=== PATIENT | female | born 1955 | race Caucasian/White ===

== ENCOUNTER 2018-07-04 21:58 | Observation (INO) | payer MEDICARE ==
[2018-07-05] MEDS ORDERED: Acetaminophen 325 MG TAB PO PRN (00:48)
[2018-07-05] MEDS ORDERED: HYDROcodone/Acetaminophen 5/325 mg Tablet PO PRN (00:48)
[2018-07-05] MEDS ORDERED: Senokot S 8.6-50 MG TAB PO PRN (00:48)
[2018-07-05] MEDS ORDERED: Dextrose 50% Abboject 50 ML SYRINGE SLOW IVP PRN (00:55)
[2018-07-05] MEDS ORDERED: HumaLOG 300 UNITS/3 ML VIAL SC PRN (00:55)
[2018-07-05] MEDS ORDERED: Dextrose 5% in Water 1,000 ML IV PRN (00:55)
[2018-07-05 02:28] VITALS: BMI 27.3
--- NOTE | 2018-07-05 04:11 | HP ---
PRIMARY CARE PHYSICIAN: Dr. Santos. CHIEF COMPLAINT: Syncope. HISTORY OF PRESENT ILLNESS: Ms. Liz is a 62-year-old female who was initially taken and evaluated at [facility] after she had an unwitnessed fall backwards. reports that they came home, she got out of the truck. He was ahead of her, went into the house, turned around and realized she was not there, so he went back out and found her on the ground on her back. He carried her into the house and put her to bed. She does report vomiting, felt better. She has no memory of the fall. Does not remember if she lost her footing, had a mechanical fall or had a syncopal episode, does not remember. When she woke up this morning, she was still quite dizzy. was worried that she had a stroke a year and half ago that she had an another one and brought her to the emergency room for further evaluation. The patient had a CT of the brain, neck, and chest with no signs of acute abnormality. EKG in the emergency room showed beats per minute 70 with no ectopics, conduction incomplete, right bundle branch block, T-waves inverted in leads III, left atrial enlargement, nonspecific T-wave changes. The patient was initially going to be transferred to [facility] where her in store marketing representative is, but they were unable to get a bed for her in 10 hours, so decision was decided to send her to [facility] for admission. The patient does have a past medical history pertinent for CVA 18 months ago, hyperlipidemia, hypertension, CAD, had a five-vessel CABG, diabetes. PAST SURGICAL HISTORY: Cervical spine, carpal tunnel bilaterally, five-vessel CABG, hysterectomy, mastectomy. SOCIAL HISTORY: Denies alcohol or drug use. No smoking history. ALLERGIES: NONE. CURRENT MEDICATIONS: Per ER systems, would need to be verified and reconciled, 1. Coreg 12.5 mg p.o. two times a day. 2. Lisinopril 10 mg p.o. b.i.d. 3. Metformin 1000 mg p.o. b.i.d. 4. Aspirin 81 mg in the morning. REVIEW OF SYSTEMS: The patient reports syncope. Denies chest pain or palpitations. Denies any shortness of breath. Does reports some nausea and vomiting earlier, resolved. She does report headache which has improved. All other systems reviewed and are negative unless mentioned in the HPI. PHYSICAL EXAMINATION: VITAL SIGNS: Temperature is 98, pulse is 95, respirations 20, pO2 sats are 97% on room air, blood pressure is CONSTITUTIONAL: The patient is alert and oriented to person, place, and time. She is in no acute distress. HEENT: Head has a 1 cm left posteroparietal scalp hematoma. No depression. Negative Schofield sign. Eyes, pupils are equal, round, and reactive to light. Extraocular muscles are intact. ENT, mouth exam is normal. Mucous membranes are moist. NECK: No tenderness. Normal range of motion. RESPIRATORY: Breath sounds are clear. Mild tenderness to the left posterior chest. CARDIOVASCULAR: Regular heart rate and rhythm. Heart sounds are normal. ABDOMEN: Nontender. Bowel sounds are heard. BACK: Normal range of motion. No tenderness. EXTREMITIES: Upper extremities; normal inspection. Normal range of motion. Sensation is intact. Radial pulses are normal. Lower extremities; normal inspection. Normal range of motion. Motor strength is normal. Sensation is intact. Pedal pulses are normal. NEUROLOGIC: The patient is oriented to person, place, and time. There are no focal motor or sensory deficits. SKIN: Warm, dry, normal in color. PERTINENT LABORATORY DATA: Sodium 138, potassium is 4.0, chloride is 105, carbon dioxide is 24, gap is 13, BUN is 13, estimated GFR is 42, creatinine is 1.29, glucose 238. Liver enzymes are unremarkable. ASSESSMENT AND PLAN: 1. Syncope. We will place on heart monitor. The patient has a history of cerebrovascular accident. We will obtain a brain MRI without contrast, carotid Dopplers, and echocardiogram. 2. Dizziness, may be related #1. The patient did have unwitnessed fall with head injury, might be concussive. We will keep a close eye. We will ask stroke team to evaluate. Aspirin 325 mg. 3. Hypertension. We will continue home medications. We will trend. 4. Diabetes. We are going to hold metformin for now. Add a.c. and at bedtime Accu-Cheks, mild sliding scale. 5. Dyslipidemia. We will check lipids. However, the patient states that she had severe adverse reactions to statins and she refuses to be restarted. She does take fish oil. 6. We have asked for records from [facility]. The patient follows Dr. Ramachandran over there for any cardiac related CVA or anything that could help us with past medical history would be helpful. 7. Gastrointestinal and deep venous thrombosis prophylaxis will be started. 8. Hospital course will be dependent on clinical findings. Job ID: [id number]
[2018-07-05 05:57] LABS: PTT 31.8 SEC (22.9-36.1); Prothrombin Time 13.2 SEC (12.0-14.7)
[2018-07-05 05:58] LABS: #Basophils 0.1 thou/uL (0.0-0.2); #Eosinphils 0.2 thou/uL (0.0-0.7); #Lymphocytes 2.5 thou/uL (1.20-3.40); #Monocytes 0.5 thou/uL (0.11-0.59); #Neutrophils 3.4 thou/uL (1.40-6.50); %Basophils 0.8 % (0.0-1.0); %Eosinophils 2.5 % (0.0-10.0); %Lymphocytes 37.4 % (21.0-51.0); %Monocytes 7.6 % (0.0-10.0); %Neutrophils 51.7 % (42.0-75.0); Hemoglobin 13.1 g/dL (12.0-16.0); Mean Corpuscular HGB CONC 33.6 g/dL (32.0-36.0); Mean Corpuscular Hemoglobin 29.6 pg (27.0-31.0); Mean Corpuscular Volume 87.8 fL (78.0-98.0); Mean Platelet Volume 9.4 fL (7.4-10.4); Platelet Count 160 thou/uL (130-400); RBC Distribution Width 12.5 % (11.5-14.5); Red Blood Cell (RBC) Count 4.43 mill/uL (4.20-5.40); White Blood Cell (WBC) Count 6.6 thou/uL (4.8-10.8)
[2018-07-05 06:25] LABS: ALT (SGPT) 20 U/L (8-55); AST (SGOT) 16 U/L (5-34); Albumin 3.7 g/dL (3.4-4.8); Alkaline Phosphatase 95 U/L (40-150); Anion Gap 11 mmol/L (10-20); BUN (Urea Nitrogen) 15 mg/dL (9.8-20.1); Bilirubin, Total 0.3 mg/dL (0.2-1.2); Calc. Creatinine Clearance 69 mL/min (70-130); Calcium 9.3 mg/dL (7.8-10.44); Carbon Dioxide 25 mmol/L (23-31); Cardiac Risk 7.4 (Less than 4.5); Chloride 107 mmol/L (98-107); Cholesterol 221 mg/dl (< 200 Desired); Estimated GFR-MDRD 52; Globulin 2.5 g/dL (2.4-3.5); Glucose 166 mg/dL (80-115); HDL Cholesterol 30 mg/dL (>60 Neg Risk); Potassium 3.9 mmol/L (3.5-5.1); Protein, Total 6.2 g/dL (6.0-8.3); Sodium 139 mmol/L (136-145); Triglycerides 571 mg/dL (Less than 150)
[2018-07-05] MEDS ORDERED: hydrALAZINE 20 MG/ML VIAL SLOW IVP PRN (07:56)
[2018-07-05] MEDS ORDERED: Labetalol HCl 100 MG/20 ML VIAL SLOW IVP PRN (07:56)
[2018-07-05] MEDS: Famotidine 20 MG TAB PO SCH ×2 (09:01→21:03)
[2018-07-05] MEDS: Aspirin 325 MG TAB PO SCH (09:01)
--- NOTE | 2018-07-05 09:39 | ULT ---
EXAM: Carotid ultrasound HISTORY: Syncope COMPARISON: None TECHNIQUE: Multiplanar grayscale and color Doppler images were obtained in a carotid ultrasound. Spec tral analysis of the Doppler waveforms were performed. FINDINGS: No significant plaque is visualized in either internal carotid artery. No significant plaque is seen in either common carotid artery. The Doppler waveforms are normal in the visualized vessels. Peak systolic velocity in the right internal carotid artery 77 cm/s. Peak systolic velocity in the right common carotid artery 53 cm/s. The right ICA/CCA ratio is 1.4. Peak systolic velocity in the left internal carotid artery 62 cm/s. Peak systolic velocity in the left common carotid artery 87 cm/s. The left ICA/CCA ratio is 0.7. Both vertebral arteries demonstrate antegrade flow without focal stenosis IMPRESSION: No evidence of hemodynamically significant stenosis.
[2018-07-05] MEDS ORDERED: Losartan 25 MG TAB PO SCH (10:00)
--- NOTE | 2018-07-05 10:18 | MRI ---
EXAM: MRI of the brain without contrast HISTORY: Passed out hitting head; syncope; history of stroke COMPARISON: None TECHNIQUE: Multiplanar multisequence MR images were obtained of the brain without IV contrast. FINDINGS: Scattered foci of high T2/FLAIR signal in the subcortical and periventricular white matter are likely secondary to small vessel ischemic disease. No restricted diffusion. No hydronephrosis. No extra-axial fluid collection or intracranial hemorrhage. The expected flow voids are present. Corpus callosum, pituitary, and craniocervical junction are within normal limits. The calvarium and overlying soft tissues are unremarkable. The paranasal sinuses and mastoid air cells are well aerated. IMPRESSION: No evidence of acute intracranial abnormality.
[2018-07-05] MEDS ORDERED: Carvedilol 6.25 MG TAB PO SCH (11:45)
[2018-07-05] MEDS ORDERED: Cyclobenzaprine 10 MG TAB PO PRN (16:16)
[2018-07-05] MEDS ORDERED: Ketorolac Tromethamine 30 MG/ML VIAL IVP PRN (16:18)
[2018-07-05] MEDS ORDERED: NIFEdipine XL 60 MG TAB PO SCH (16:30)
[2018-07-05] MEDS: metFORMIN 500 MG TAB PO SCH (16:59)
[2018-07-05] MEDS ORDERED: Ondansetron PF 4 MG/2 ML Vial IVP PRN (19:11)
[2018-07-05] MEDS ORDERED: Meclizine HCl 12.5 MG TAB PO PRN (19:11)
--- NOTE | 2018-07-05 19:27 | PRG ---
DATE OF SERVICE: 07/05/2018 SUBJECTIVE: Ms. Boateng is a pleasant 62-year-old female with past medical history significant for hypertension; coronary artery disease, status post 5- vessel CABG; and diabetes mellitus, who presented to the hospital after suffering a syncopal event at home. Apparently, the patient literally fell backwards, without any prodrome. All of her scans have been negative for injury. Her MRI and carotid were negative as well. Ms. Boateng's main complaint is chronic neck pain, that she has had for many months. She did have cervical fusion of C5 through C7 in 2014. She states that the pain is currently at a level 8. She denies any chest pain or shortness of breath. She denies any dizziness. She has walked with PT without any issue. She has no other complaints at this time. OBJECTIVE: VITAL SIGNS: Blood pressure 191/99, pulse is 70, O2 saturation is 96% on room air, respirations are 16, temperature is 98.2. GENERAL: The patient is a moderately obese female, resting comfortably in bed, in no acute distress. HEENT: Head is atraumatic and normocephalic. Mucous membranes are moist. NECK: Supple. No lymphadenopathy. No JVD. CV: S1 and S2. Regular rate and rhythm. No appreciable murmurs, rubs, or gallops. LUNGS: Regular respiratory rate and pattern. Clear to auscultation bilaterally. ABDOMEN: Positive bowel sounds. Soft, nontender, moderately obese. EXTREMITIES: No edema. +2 DP pulses bilaterally. SKIN: Warm and dry. No rashes or discolorations. NEUROLOGIC: Cranial nerves 2 through 12 are intact. The patient is nonfocal. MUSCULOSKELETAL: The patient has no joint effusions or swelling. She does appear to have limited range of motion of her neck, which she says is chronic. LABORATORY DATA: White blood cell count 6.6, hemoglobin 13.1, hematocrit 38.9, platelet count is 160. Sodium 139, potassium 3.9, BUN 15, creatinine 1.06, glucose 130. AST, ALT, and alkaline phosphatase all within normal limits. Triglycerides 571, cholesterol 221, LDL unable to be calculated, HDL is 30. ASSESSMENT: 1. Syncopal episode with no prodrome, unknown etiology at this time. Workup is so far negative. 2. Accelerated hypertension, refractory. 3. Chronic neck pain with history of anterior cervical disk fusion of C5 through C7 in June of 2014. 4. Coronary artery disease, status post 5-vessel coronary artery bypass grafting. 5. Type 2 diabetes mellitus. 6. Hyperlipidemia with significantly elevated triglycerides. 7. Prior CVA 18 months ago, some right sided deficits PLAN: At this time, the patient's blood pressure remains significantly elevated. We will add nifedipine 30 mg orally daily. We will also try to control her pain with Flexeril and Toradol. Echocardiogram is pending. If her blood pressure trends down, we will expect discharge tomorrow. She does follow regularly with Dr. Jorden Gold at [facility], and if workup remains negative, she can follow up with him as an outpatient. She also needs to follow up with Dr. Lopze as well, who performed her previous cervical surgery. This patient has been discussed with Dr. Motta, who agrees with the above. Job ID: [id number] MTDD
[2018-07-05] MEDS: Carvedilol 6.25 MG TAB PO SCH (21:03)
[2018-07-05] MEDS: Lisinopril 20 MG TAB PO SCH (21:03)
[2018-07-05] MEDS: Fish Oil 1,000 MG CAP PO SCH (21:03)
[2018-07-06 07:36] VITALS: TEMP 98
[2018-07-06] MEDS: Lisinopril 20 MG TAB PO SCH (07:47)
[2018-07-06] MEDS: Carvedilol 6.25 MG TAB PO SCH (07:57)
[2018-07-06] MEDS: Aspirin 325 MG TAB PO SCH (09:00)
[2018-07-06] MEDS ORDERED: Fish Oil 1,000 MG CAP PO SCH (09:00)
[2018-07-06] MEDS ORDERED: NIFEdipine XL 30 MG TAB PO SCH (09:00)
[2018-07-06] MEDS ORDERED: Losartan 25 MG TAB PO SCH (09:00)
[2018-07-06] MEDS: Famotidine 20 MG TAB PO SCH (09:01)
[2018-07-06] MEDS: metFORMIN 500 MG TAB PO SCH (09:01)
[2018-07-06] MEDS: Fish Oil 1,000 MG CAP PO SCH (09:01)
--- NOTE | 2018-07-06 09:56 | PDOC.EVN ---
Event Note - Event Note Event Note: pt seen and examined agree with physician assistance assessment and plan. Discussed all lab and scan with pt and . She feels a lot better today. will continue ibuprofen and flexeril for the next few days. She was asked to follow up with her neurosurgeon. He blood pressure has improved and she will continue her current meds with additional of prn meds for her bp. she was asked to keep a diary of her bp. Also her triglycerides were elevated, did discuss nutrition vs taking medication. pt wants to alter her food intake and reassess her triglycerides, she is not interested in a pill.
[2018-07-06 10:06] VITALS: BP 132/75
--- NOTE | 2018-07-06 17:39 | DIS ---
DATE OF ADMISSION: 07/05/2018 DATE OF DISCHARGE: 07/06/2018 ADMITTING DIAGNOSIS: Syncope. DISCHARGE DIAGNOSES: 1. Syncopal episode with no prodrome, resolved, unknown etiology at this time, stroke workup negative including CT of brain, MRI of brain, and carotid Doppler. Echo also negative. 2. Accelerated hypertension in the setting of chronic neck pain, resolved. 3. Chronic neck pain with history of anterior cervical disk fusion of C5 through C7, June 2014. 4. Coronary artery disease, status post five-vessel coronary artery bypass grafting, followed by Dr. Jorden Gold at [facility]. 5. Type 2 diabetes mellitus. 6. Hyperlipidemia with significantly elevated triglycerides. 7. Previous CVA 18 months ago with some residual right-sided deficits, stable. BRIEF HOSPITAL COURSE: The patient is a pleasant 62-year-old female with past medical history significant for hypertension, CAD, and chronic neck pain as outlined above, who presented to the hospital after suffering a syncopal event at home. Apparently, the patient was walking into her home from the vehicle after going grocery shopping when the patient abruptly fell backwards. She had no prodrome. She quickly regained consciousness. She presented to the ER for further workup and treatment. She remained on telemetry throughout her stay with no evidence of any bradyarrhythmia or other arrhythmogenic cause for syncope. As mentioned above, her brain MRI and brain CT were negative for any stroke. She also had CT scans of cervical spine and chest CT which were negative for any injury from her fall. The patient did remain significantly hypertensive with blood pressure readings from 180s to 220s. She was given IV labetalol and hydralazine, along with her home medication regimen. Her neck pain was controlled with Toradol, and the patient's blood pressure did trend down as her neck pain resolved. On the morning of discharge, the patient feels well. She has worked with PT. She denies any chest pain or shortness of breath. No nausea, vomiting, or dizziness at this time. DISCHARGE DISPOSITION: Home. CONDITION AT DISCHARGE: Stable. PLAN: We will discharge the patient home in good condition today. She will continue her home medication regimen, which includes lisinopril and carvedilol. The patient is reluctant to take additional medications. I have discussed the importance of statin therapy along with controlling her triglycerides with possibly Vascepa in the future. She is to discuss this with her primary store leader, Dr. Gold at [facility], who she will follow up with. The findings of all testing have been discussed with the patient and she understands that she will continue aggressive risk factor modification including diet, weight loss, along with aggressive control of her diabetes. She will also be discharged on p.r.n. clonidine 0.1 mg for blood pressure greater than 170. Care of the patient has been discussed with Dr. Motta, who does agree with discharge as outlined above. Job ID: [id number]
== END 2018-07-06 11:09 | disposition home or self-care (01) ==
LOC: ERS 21:58 → 2SE 07-05 00:28
PROVIDERS: ADMIT Hospitalist; ATTEND Hospitalist
DX: R55 Syncope and collapse (principal); I10 Essential (primary) hypertension; M54.2 Cervicalgia; G89.29 Other chronic pain; E11.9 Type 2 diabetes mellitus without complications; I25.10 Atherosclerotic heart disease of native coronary artery without angina pectoris; I69.30 Unspecified sequelae of cerebral infarction; E78.5 Hyperlipidemia, unspecified; E78.1 Pure hyperglyceridemia; Z95.1 Presence of aortocoronary bypass graft; Z98.890 Other specified postprocedural states; Z79.82 Long term (current) use of aspirin; Z79.84 Long term (current) use of oral hypoglycemic drugs; Z79.899 Other long term (current) drug therapy
CPT/HCPCS: 70551; 80061; 82962 ×2; 85610; 85730; 93306; 93880; 96374; 96375; 97139 ×5; 97530; 99285; G0378 ×2; 36415; 36416; 80053; 84443; 85025; J0360; J1885; J2405

== ENCOUNTER 2018-08-18 23:37 | Observation (INO) | payer MEDICARE ==
[2018-08-18] MEDS ORDERED: Ondansetron PF 4 MG/2 ML Vial ONE (23:54)
[2018-08-19] MEDS ORDERED: Labetalol HCl 100 MG/20 ML VIAL ONE (00:06)
[2018-08-19] MEDS ORDERED: Ondansetron ODT 4 MG TAB SL PRN (04:22)
[2018-08-19] MEDS ORDERED: Ondansetron PF 4 MG/2 ML Vial IVP PRN ×2 (04:22→06:47)
[2018-08-19 05:16] VITALS: BMI 26.6
[2018-08-19] MEDS ORDERED: HumaLOG 300 UNITS/3 ML VIAL SC PRN ×2 (06:47)
[2018-08-19] MEDS ORDERED: Zolpidem Tartrate 5 MG TAB PO PRN (06:47)
[2018-08-19] MEDS ORDERED: hydrALAZINE 20 MG/ML VIAL SLOW IVP PRN (06:47)
[2018-08-19] MEDS ORDERED: Artificial Tears 18 DROP/0.9 ML EA EYE PRN (06:47)
[2018-08-19] MEDS ORDERED: Cepastat Lozenges 1 LOZ PO PRN (06:47)
[2018-08-19] MEDS ORDERED: Dextrose 5% in Water 1,000 ML IV PRN (06:47)
[2018-08-19] MEDS ORDERED: Sodium Chloride 0.65% Nasal 44 ML BOT EA NARE PRN (06:47)
[2018-08-19] MEDS ORDERED: Calcium Carbonate 500 MG ChewTAB PO PRN (06:47)
[2018-08-19] MEDS ORDERED: cloNIDine 0.1 MG TAB PO PRN (06:47)
[2018-08-19] MEDS ORDERED: Loratadine 10 MG TAB PO PRN (06:47)
[2018-08-19] MEDS ORDERED: HYDROcodone/Acetaminophen 5/325 mg Tablet PO PRN (06:47)
[2018-08-19] MEDS ORDERED: Bisacodyl 10 MG SUPP PR PRN (06:47)
[2018-08-19] MEDS ORDERED: Dextrose 50% Abboject 50 ML SYRINGE SLOW IVP PRN (06:47)
[2018-08-19] MEDS ORDERED: Senokot S 8.6-50 MG TAB PO PRN (06:47)
[2018-08-19] MEDS ORDERED: Diabetic Tussin 200 MG/10 ML UDCUP PO PRN (06:47)
[2018-08-19] MEDS ORDERED: Acetaminophen 325 MG TAB PO PRN (06:47)
[2018-08-19] MEDS ORDERED: Loperamide HCl 2 MG CAP PO PRN (06:47)
[2018-08-19] MEDS ORDERED: Ondansetron ODT 4 MG TAB PO PRN (06:47)
[2018-08-19] MEDS: Aspirin 325 mg Enteric Coated Tablet PO SCH (08:38)
[2018-08-19] MEDS: metFORMIN 500 MG TAB PO SCH ×2 (08:38→16:19)
[2018-08-19] MEDS: Carvedilol 6.25 MG TAB PO SCH ×2 (08:40→16:19)
[2018-08-19] MEDS: Famotidine 20 MG TAB PO SCH ×2 (08:41→21:30)
[2018-08-19] MEDS: Lisinopril 20 MG TAB PO SCH ×2 (08:42→21:29)
[2018-08-19] MEDS: Fish Oil 1,000 MG CAP PO SCH ×2 (08:42→21:29)
[2018-08-19] MEDS ORDERED: Non-Formulary Item 1 EACH (Carvedilol [Coreg] 12.5 MG) PO SCH (09:00)
[2018-08-19] MEDS ORDERED: Non-Formulary Item 1 EACH (Metformin Hcl [Metformin Hcl] 1,000 MG) PO SCH (09:00)
[2018-08-19] MEDS ORDERED: Non-Formulary Item 1 EACH (Cholecalciferol (Vitamin D3) [Vitamin D3] 1 TAB) PO SCH (09:00)
[2018-08-19] MEDS ORDERED: NIACIN PO SCH (09:00)
[2018-08-19] MEDS ORDERED: NIFEdipine XL 30 MG TAB PO SCH (10:00)
[2018-08-19] MEDS ORDERED: NIFEdipine XL 60 MG TAB PO SCH (10:30)
--- NOTE | 2018-08-19 10:40 | HP ---
PRIMARY CARE PHYSICIAN: Dr. Mehdi Santos. REASON FOR ADMISSION: Hypertensive urgency, rule out CVA. HISTORY OF PRESENT ILLNESS: This is a 62-year-old female, who was watching TV, and all of a sudden, she started having tingling and numbness on left upper and lower extremity. She was also having dizziness, and she started vomiting several times at home. She was not complaining of any headache or confusion. Her was worried about heart attack and that is why he took her to local emergency room at [place], where the patient's blood pressure was 220/129. The patient had a CT of brain, which was negative for any acute process. CT [place] was also negative for any acute process. Subsequently, this patient was transferred to our hospital for further evaluation. At [facility], the patient was given labetalol and Zofran. The patient does not have any motor weakness, but she is still feeling paresthesia on left side. The patient did have similar type of symptoms in the past, and at that time, the patient reports that she was having right-sided weakness. Noted that in June 2018, the patient had a MRI of brain, which was unremarkable. Echocardiography was also unremarkable. Routine blood test was done at the [facility], which was completely unremarkable. Currently, the patient denies any headache. She denies any UTI symptoms. She denies any stress. She denies any form of body pain. She does have chronic neck pain. REVIEW OF SYSTEMS: CONSTITUTIONAL: Negative for weight loss or gain, ability to conduct usual activities. SKIN: Negative for rash, itching. EYES: Negative for double vision, pain. ENT/MOUTH: Negative for nose bleeding, neck stiffness, pain, tenderness. CARDIOVASCULAR: Negative for palpitations, dyspnea on exertion, orthopnea. RESPIRATORY: Negative for shortness of breath, wheezing, cough, hemoptysis, fever or night sweats. GASTROINTESTINAL: Negative for poor appetite, abdominal pain, heartburn, nausea, vomiting, constipation, or diarrhea. GENITOURINARY: Negative for urgency, frequency, dysuria, nocturia. MUSCULOSKELETAL: Negative for pain, swelling. NEUROLOGIC/PSYCHIATRIC: Negative for anxiety, depression. ALLERGY/IMMUNOLOGIC: Negative for skin rash, bleeding tendency. Please see my HPI for pertinent positives and negatives. All other review of systems reviewed and negative except as mentioned in the HPI. PAST MEDICAL HISTORY: History of TIA/CVA with right-sided weakness, resolved; hypertension, labile; diabetes, type 2; and dyslipidemia. PAST SURGICAL HISTORY: Cervical spine surgery, carpal tunnel surgery bilaterally, hysterectomy, and mastectomy on the right side. PAST PSYCHIATRIC HISTORY: Reviewed and negative. SOCIAL HISTORY: The patient is . Lives at home with her . No history of tobacco, alcohol, or illicit drug abuse. CURRENT HOME MEDICATIONS: 1. Coreg 12.5 mg twice daily. 2. Lisinopril 10 mg twice daily. 3. Metformin 1000 mg p.o. b.i.d. 4. Aspirin 81 mg p.o. daily. EMERGENCY ROOM COURSE: The patient was given aspirin 324 mg and Zofran 4 mg, and the patient received labetalol. FAMILY HISTORY: No strong family history of premature coronary artery disease, stroke, or cancer. ALLERGIES: NO KNOWN DRUG ALLERGY. PHYSICAL EXAMINATION: VITAL SIGNS: Currently, blood pressure 220/129, pulse 70, respiratory rate 20, temperature 97.8, and saturation 96% on room air. Weight 77 kg. GENERAL: The patient is currently alert, oriented, no obvious acute distress. HEENT: Head, normocephalic and atraumatic. Eyes; pupils round, reactive to light. Extraocular muscle intact. ENT, oropharynx within normal limits. Moist mucous membranes. No oral lesion. No pharyngeal erythema. No exudate. NECK: Supple. No JVD. No thyromegaly. No carotid bruit. No jugular venous distention. LUNGS: Clear to auscultation without any rhonchi or rales. CARDIAC: S1 and S2 regular. No murmur. No gallop. No rub. ABDOMEN: Soft and benign without any tenderness. EXTREMITIES: No edema. NEUROLOGIC: The patient is alert and oriented x3. Cranial nerves 2 through 12 intact. The patient does have subjective paresthesia on the left side. No motor deficit. No cerebellar sign. Reflexes normal. Plantar bilateral flexor. PSYCHIATRIC: Normal affect. SKIN: No skin rash. HEMATOLOGIC: No lymphadenopathy. SIGNIFICANT LABORATORY DATA: CT [place] negative for any acute occlusion or process. CT of brain negative for any acute intracranial process. CBC; WBC 7.8, hemoglobin 13.9, and platelets 196. INR 0.9. BMP; sodium 142, potassium 4.0, chloride 106, carbon dioxide 23, anion gap 17, BUN 14, creatinine 1.20, glucose 148, and calcium 9.1. LFT; AST 23, ALT 23, alkaline phosphatase 112, and albumin 4.4. Troponin I 0.019. EKG based on my review, normal sinus rhythm without any acute ischemic changes. ASSESSMENT AND PLAN: 1. Hypertensive crisis. This patient's blood pressure was very high; at the same time, the patient was having neurologic symptoms and vomiting. CT [place] and CT brain are negative for any acute process. At this point, the patient will need to be observed for 24 hours in the hospital to better define her blood pressure and adjust her medication. Currently, her home medication regimen is not working and controlling her blood pressure well and family are concerned about. At this point, I will continue with Coreg 12.5 mg twice daily and lisinopril 20 mg p.o. b.i.d. I will also add Procardia XL 60 mg p.o. daily and control her blood pressure very well. We will monitor her neuro status. 2. Rule out cerebrovascular accident. The patient does have rare paresthesia on left upper and lower extremity. I am suspecting that is related with her uncontrolled hypertension. Possibility of transient ischemic attack is there, but the patient had recently full workup done including MRI, echocardiography, and that is why we will defer further investigation to Neurology. We will consult Neurology, and we will continue with aspirin 325 mg p.o. daily and Lipitor 40 mg p.o. at bedtime. As the patient's blood pressure is labile and that is why I will send secondary hypertension workup with plasma renin activity and aldosterone level in the morning. We will check lipid profile tomorrow morning. 3. Diabetes, type 2. We will continue with metformin 1000 mg twice daily and insulin as per sliding scale protocol. Diabetic diet will be given. 4. Dyslipidemia. Check lipid profile tomorrow and continue Lipitor 40 mg p.o. at bedtime. 5. Deep venous thrombosis prophylaxis is not needed because we are expecting discharge in 24 hours. 6. Gastrointestinal prophylaxis, Pepcid 20 mg p.o. b.i.d. CODE STATUS: The patient is a full code. The patient's is surrogate decision maker. PLAN: Plan of care discussed with the patient and her at bedside. At this point, I will keep this patient in the hospital for 24 hours for blood pressure monitoring and we will consider discharging her home tomorrow morning. Job ID: [id number]
[2018-08-19] MEDS ORDERED: Atorvastatin Calcium 40 MG TAB PO SCH (21:00)
[2018-08-19] MEDS ORDERED: Atorvastatin Calcium 10 MG TAB PO SCH (21:00)
--- NOTE | 2018-08-19 23:01 | CON ---
DATE OF CONSULTATION: 08/19/2018 CONSULTING PHYSICIAN: Hospitalist Service. IMPRESSION: 1. Transient ischemic event with left-sided numbness. 2. History of prior stroke with right-sided weakness. 3. Hypertension. 4. Aspirin failure. PLAN: 1. Add Plavix. 2. Continue aspirin. 3. The patient will be discharged home. HISTORY OF PRESENT ILLNESS: Ms. Boateng is a 62-year-old white female with a past history of hypertension and stroke. She had some residual right-sided weakness. She presented yesterday with complaints of left-sided numbness. It is not associated with slurred speech or any motor deficits. She was previously worked up in June. She had an echocardiogram, which showed 55% ejection fraction. Came into the ER at this time with CT being done, which did not show any acute ischemic changes. Her CT angiogram was otherwise negative. She has had a carotid ultrasound, which shows no extracranial stenosis. She had an MRI of the brain done in June, which only showed small-vessel ischemic changes, but no acute abnormalities. She had similar symptoms in June. She was a bit hypertensive on arrival with a blood pressure of 178/105. She feels like she is back to her baseline at this point. PAST MEDICAL HISTORY: As listed above. ALLERGIES: NONE. SOCIAL HISTORY: No tobacco use. FAMILY HISTORY: Noncontributory. MEDICATIONS: Medication list was reviewed. REVIEW OF SYSTEMS: Ten-system review of systems otherwise negative. PHYSICAL EXAMINATION: GENERAL: She is a well-nourished, elderly lady, in no distress. VITAL SIGNS: Stable. She is afebrile. HEENT: Pupils equal and reactive. Conjunctivae clear. Oropharynx clear. NECK: Supple. No lymphadenopathy. EXTREMITIES: No cyanosis or edema. NEUROLOGIC: She is alert and cooperative. Her speech is fluent and clear. Her cranial nerve exam showed some right nasolabial fold flattening. She had a right-sided fix on arm roll testing. Sensation was intact to touch bilaterally. She can walk independently. No abnormal movements were seen. No tremor or dysmetria is present. SUMMARY: This is an elderly woman with recurrent ischemic symptoms, which have cleared off at this point. There was no evidence of hemorrhage. It is likely due to small-vessel disease. I would go ahead and add the Plavix, and I will follow up with her in the office. Job ID: [id number]
[2018-08-20 04:15] VITALS: TEMP 98.4
[2018-08-20 06:00] LABS: Cardiac Risk 8.4 (Less than 4.5)
[2018-08-20] MEDS: metFORMIN 500 MG TAB PO SCH (07:40)
[2018-08-20] MEDS: Carvedilol 6.25 MG TAB PO SCH (07:41)
[2018-08-20] MEDS: Famotidine 20 MG TAB PO SCH (07:42)
[2018-08-20] MEDS: Lisinopril 20 MG TAB PO SCH (07:43)
[2018-08-20] MEDS: Aspirin 325 mg Enteric Coated Tablet PO SCH (07:44)
[2018-08-20] MEDS: Fish Oil 1,000 MG CAP PO SCH (07:46)
[2018-08-20 07:47] VITALS: BP 137/73
[2018-08-20] MEDS ORDERED: Clopidogrel Bisulfate 75 MG TAB PO SCH (09:00)
[2018-08-20] MEDS ORDERED: NIFEdipine XL 60 MG TAB PO SCH (09:00)
--- NOTE | 2018-08-20 09:18 | DIS ---
DATE OF ADMISSION: 08/19/2018 DATE OF DISCHARGE: 08/20/2018 PRIMARY CARE PHYSICIAN: Mehdi Santos MD DISCHARGE DISPOSITION: Home. PRIMARY DISCHARGE DIAGNOSES: Hypertensive urgency and transient ischemic attack. SECONDARY DISCHARGE DIAGNOSES: Hypertension, diabetes type 2, and dyslipidemia. PRIMARY PROCEDURE/OPERATION: None. RADIOLOGICAL INVESTIGATION: [facility] [place] [facility] [place], negative. CT brain negative. SIGNIFICANT LABS: LDL 168, otherwise all routine labs at other emergency room, at [facility] were normal. DISCHARGE MEDICATIONS: 1. Coreg 12.5 mg p.o. b.i.d. 2. Vitamin D3 1000 units p.o. daily. 3. Lisinopril 20 mg b.i.d. 4. Metformin 1000 mg b.i.d. 5. Niacin 1 tablet daily. 6. Aspirin 81 mg daily. 7. Plavix 75 mg daily. 8. Clonidine 0.1 mg t.i.d. p.r.n. 9. Zetia 10 mg p.o. daily. 10. Fish oil 1000 mg b.i.d. 11. Procardia XL 60 mg p.o. daily. CONTRAINDICATION: The patient is not on statin therapy because the patient is allergic to statin therapy. CODE STATUS: Full code. INPATIENT AUTO TECHNICIAN: Dr. Flash Perez, Neurology was consulted while in hospital. TEST RESULT PENDING ON DISCHARGE: None. ALLERGIES: STATINS. DISCHARGE PLAN: Posthospital, the patient will follow up with primary care physician in 1 week. HOSPITAL COURSE: This is a 62-year-old female, who was admitted by me. Please see my HPI for further details. This patient was having suddenly high blood pressure and she was experiencing left-sided upper and lower extremity paresthesia without any motor weakness. She was found with a TIA. She had a stroke workup in [facility] with CT brain and CT [place] [facility] [place], that were negative. This patient was transferred to our hospital for monitoring. We consulted Neurology and they recommended that the patient needs Plavix to add because she failed aspirin therapy. This patient is not given statin therapy because she is allergic to that and that is why we added Zetia therapy on her regimen. Her blood pressure was high on admission and her blood pressure was not properly controlled and that is why we added Procardia XL on her regimen. Rest of medication she will continue as per previous. Necessary patient education about diet and heart healthy diet discussed with the patient. Diabetic diet also discussed with the patient. Overall, the patient is stable for discharge. During this admission, we did not pursue any more investigation as she had recently all workup done in June of this year. The patient is seen and examined at bedside today. Her examination is unremarkable. Job ID: [id number]
[2018-08-23 17:09] LABS: Renin Activity Less than 0.167 ng/mL/hr (0.167-5.380)
[2018-08-24 17:08] LABS: Metanephrine,Plasma 14 pg/mL (0-62); Normetanephrine,Pl 113 pg/mL (0-145)
== END 2018-08-20 10:34 | disposition home or self-care (01) ==
LOC: ERS 23:37 → ERHOLD 08-19 00:20 → 2SE 08-19 04:06
PROVIDERS: ADMIT Internal Medicine; ATTEND Internal Medicine
DX: I16.0 Hypertensive urgency (principal); G45.9 Transient cerebral ischemic attack, unspecified; E11.9 Type 2 diabetes mellitus without complications; E78.5 Hyperlipidemia, unspecified; Z86.73 Personal history of transient ischemic attack (TIA), and cerebral infarction without residual deficits; Z88.8 Allergy status to other drugs, medicaments and biological substances; Z79.82 Long term (current) use of aspirin; Z79.84 Long term (current) use of oral hypoglycemic drugs; Z79.899 Other long term (current) drug therapy
CPT/HCPCS: 80061; 82088; 82962 ×2; 83835; 84244; 96374; 96375; 97116; 97139 ×5; 99285; G0378 ×2; 36415; 36416; J2405